=== PATIENT | female | born 1975 | race Hispanic/Latino ===

== ENCOUNTER 2016-12-14 08:59 | Outpatient (CLI) | payer BC ==
[2016-12-14 09:30] LABS: Blood Urea Nitrogen 17 mg/dL (7-17)
[2016-12-14] MEDS ORDERED: NACL ONE (09:36)
--- NOTE | 2016-12-14 14:23 | Cat Scan Report ---
CTA ABDOMEN AND PELVIS INDICATION: Venous insufficiency. COMPARISON: None similar at this institution. FINDINGS: Abdomen and pelvis CTA performed following IV contrast. Precontrast images also obtained. Axial, sagittal, coronal and computer generated MIP and 3D reformats obtained. LUNG BASES: Minimal pericardial thickening or fluid anteriorly measuring 2-3 mm, axial series 2, image 3. Nonspecific distal esophageal wall prominence/thickening, not excluded for gastroesophageal reflux and/or hiatal hernia, amongst others. ABDOMEN: Precontrast images demonstrate no radiopaque gallstones or renal calculi. Postcontrast images demonstrate right hepatic lobe approximately 19 cm in mid clavicular length. Left hepatic lobe tip also wraps around the spleen in the left upper quadrant. Otherwise unremarkable liver, spleen, gallbladder, pancreas, adrenals, IVC and kidneys. No ascites or size significant adenopathy. Nonopacified GI tract evaluation limited, though grossly nonobstructive. Tiny fat-containing umbilical hernia with a transverse neck of 4 mm. CTA images demonstrate patent celiac axis, SMA, ANIKA and single bilateral renal arteries. PELVIS: Small bilateral adnexal/ovarian follicular cysts measuring up to 1.9 cm on the right. Uterus and non-opacified urinary bladder grossly within normal limits. Rectosigmoid stool. No free fluid or significant adenopathy. Cecum incidentally noted low-lying in the pelvis with a normal appendix. CTA images demonstrate patent bilateral iliac vessels. Prominent parametrial veins, left more than right. Nonspecific 1 cm sclerotic focus in T11 vertebral body posteriorly on the left, axial image 26, series 3. CONCLUSION: 1. Normal CTA of the abdomen and pelvis. Pelvic venous congestion may though be correlated for clinically in an appropriate setting. 2. Few other incidental findings, including distal esophageal prominence/thickening and prominent/slightly enlarged liver, amongst others, as above. Thank you for the opportunity to participate in this patient's care.
== END 2016-12-14 09:00 | disposition home or self-care (01) ==
LOC: CT 08:59
PROVIDERS: ATTEND Radiology Diagnostic Radiology
DX: I87.2 Venous insufficiency (chronic) (peripheral) (principal); N94.89 Other specified conditions associated with female genital organs and menstrual cycle; K42.9 Umbilical hernia without obstruction or gangrene
CPT/HCPCS: 36415; 74174; 82565; 84520; Q9967